=== PATIENT | female | born 1950 | race Caucasian/White ===

== ENCOUNTER → 2020-12-02 | Outpatient (CLI) | payer MEDICARE, OTHER ==
--- NOTE | 2020-12-03 08:00 | KCIC ---
EXAM: MRI Left shoulder DATE: 12/02/2020 1:10 PM 03/19/2020 COMPARISON: None INDICATION: Left shoulder pain for one year. TECHNIQUE: Multiplanar, multisequence MRI of the Left shoulder was performed without contrast. FINDINGS: AC joint degenerative changes are seen. AC joint effusion is noted. Type II acromion. No os acromiale . Subacromial-subdeltoid bursal edema likely from full-thickness rotator cuff tear described below. The re is a small left shoulder joint effusion. Changes of prior rotator cuff repair are seen with tendon anchors at the level of the greater tuberos ity. There is a full-thickness tear of the supraspinatus and anterior fibers of the infraspinatus ten don measuring approximately 3 cm in AP dimension. Tendinous retraction is seen to the level of the AC joint. Thickening of the fibers of the infraspinatus posteriorly with increased signal suggesting se yancy tendinosis. Subscapularis is intact. There is thickening and increased signal of the intra-articular portion of the long head biceps tendo n likely tendinosis. No acute fracture or osteonecrosis. Left glenohumeral joint degenerative changes with chondral thinni ng superiorly and small inferior projecting osteophytes. IMPRESSION: 1. Changes of prior rotator cuff repair with re-tear of the supraspinatus and infraspinatus tendon w ith full-thickness tear measuring approximately 3 cm in AP dimension. Electronically signed by: Nickolas Chisholm MD (12/03/2020 7:57 AM) [id number] [facility]
== END ==
LOC: KCIC MRI 12:58
PROVIDERS: ATTEND Orthopaedic Surgery
DX: M75.102 Unspecified rotator cuff tear or rupture of left shoulder, not specified as traumatic (principal); M25.712 Osteophyte, left shoulder; M25.412 Effusion, left shoulder; M75.52 Bursitis of left shoulder
CPT/HCPCS: 73221